=== PATIENT | female | born 1965 | race Caucasian/White ===

== ENCOUNTER → 2016-09-21 | Outpatient (CLI) | payer OTHER | LOC: FIMAGING 14:08 | PROVIDERS: ATTEND Internal Medicine | DX: Z12.31 Encounter for screening mammogram for malignant neoplasm of breast (principal) | CPT/HCPCS: G0202 ==

== ENCOUNTER → 2016-09-24 | Outpatient (CLI) | payer OTHER | LOC: FIMAGING 14:54 | DX: M51.86 Other intervertebral disc disorders, lumbar region (principal); M99.53 Intervertebral disc stenosis of neural canal of lumbar region; M53.86 Other specified dorsopathies, lumbar region; M53.87 Other specified dorsopathies, lumbosacral region ==